=== PATIENT | female | born 1945 | race Caucasian/White ===

== ENCOUNTER 2018-03-24 05:57 | Day surgery (SDC) | payer MEDICARE ==
[~2018-03-24] VITALS: Ht 157.5 cm; Wt 98.4 kg
[~2018-03-24 05:57] MED LIST: ASPIRIN81 MG PO; CALCIUM600 M1 PO; CETRIZINE PO; GLIMEPIRIDE2 MG PO; METFORMIN HCL750 MG PO; SIMVASTATIN40 MG PO; VITAMIN D32000 UNIT PO; WOMEN'S VITA PO; [UNRECOGNIZED DRUG - OTHER] PO
[2018-03-24 07:37] VITALS: BP 147/64
== END 2018-03-24 08:00 | disposition home or self-care (01) ==
LOC: ENDO 05:57
PROVIDERS: ATTEND Surgery
PROC: 0DJD8ZZ Inspection of Lower Intestinal Tract, Via Natural or Artificial Opening Endoscopic (ICD-10-PCS; principal; 2018-03-24)
DX: Z12.11 Encounter for screening for malignant neoplasm of colon (principal); K64.4 Residual hemorrhoidal skin tags; I10 Essential (primary) hypertension; E78.5 Hyperlipidemia, unspecified; E11.9 Type 2 diabetes mellitus without complications; Z86.73 Personal history of transient ischemic attack (TIA), and cerebral infarction without residual deficits

== ENCOUNTER → 2018-04-20 | Outpatient (REF) | payer MEDICARE ==
[2018-04-20 09:18] LABS: ALBUMIN 4.4 g/dL (3.2-5.0); ALKALINE PHOSPHATASE 74 u/l (38-126); ANION GAP 16 (6-22 (CALC)); BILIRUBIN, TOTAL 0.7 mg/dL (0.0-1.4); BUN 17 mg/dL (8-23); BUN/CREATININE RATIO 21 (12-20 (CALC)); CALCULATED LDLCHOLESTEROL 59 mg/dL (62-129 (CALC)); CARBON DIOXIDE 26 mmol/l (22-30); CHLORIDE 104 mmol/l (95-108); CHOLESTEROL HDL RATIO 3.1 (<4.4 (CALC)); CREATININE 0.8 mg/dL (0.5-1.0); GFR > 60 ML/MIN (>=60 (CALC)); GFR FOR AFR.AMER. > 60 ML/MIN (>=60 (CALC)); HDL CHOLESTEROL 41 mg/dL (>=40); POTASSIUM 4.3 mmol/l (3.5-5.1); SGOT/AST 32 u/l (9-36); SODIUM 141 mmol/l (137-146); TOTAL CHOLESTEROL 126 mg/dl (0-199); TOTAL PROTEIN 7.4 g/dL (6.3-8.2); TOTAL TRIGLYCERIDES 131 mg/dl (30-149); VLDL CHOLESTROL 26 mg/dl (0-48 (CALC))
== END | disposition home or self-care (01) ==
LOC: LAB 07:55
PROVIDERS: ATTEND Internal Medicine
DX: E11.65 Type 2 diabetes mellitus with hyperglycemia (principal); E78.49 Other hyperlipidemia; I10 Essential (primary) hypertension; Z86.73 Personal history of transient ischemic attack (TIA), and cerebral infarction without residual deficits